=== PATIENT | female | born 1945 | race Caucasian/White ===

== ENCOUNTER 2021-10-14 09:21 | Emergency (ER) | payer MEDICARE, OTHER ==
[~2021-10-14] VITALS: Ht 162.6 cm; Wt 84.1 kg
[2021-10-14] MEDS ORDERED: BACITRACIN 0.9 GM PACKET OINTMENT TP ONE (10:30)
[2021-10-14] MEDS ORDERED: LIDOCAINE 1% 10 ML VIAL INJ ONE (10:30)
[2021-10-14] MEDS ORDERED: PERTUSS(ACELL),DIPH,TET VAC/PF 0.5 ML SYRINGE IM. ONE (10:30)
[2021-10-14] MEDS ORDERED: BUPIVACAINE HCL/PF 0.25% 30 ML VIAL SQ ONE (10:30)
[2021-10-14 11:40] VITALS: BP 136/69
== END 2021-10-14 12:14 | disposition home or self-care (01) ==
LOC: EMS 09:22
DX: S61.214A Laceration without foreign body of right ring finger without damage to nail, initial encounter (principal); S61.216A Laceration without foreign body of right little finger without damage to nail, initial encounter; Z88.1 Allergy status to other antibiotic agents; W45.8XXA Other foreign body or object entering through skin, initial encounter; Y93.89 Activity, other specified; Y92.89 Other specified places as the place of occurrence of the external cause; Y99.8 Other external cause status
CPT/HCPCS: 99283; 90715; 90471; 12002; J3490

== ENCOUNTER 2021-10-18 10:30 | Emergency (ER) | payer MEDICARE, OTHER ==
[~2021-10-18] VITALS: Ht 160 cm; Wt 90.9 kg
[2021-10-18 12:09] VITALS: BP 130/74
== END 2021-10-18 12:20 | disposition home or self-care (01) ==
LOC: EMS 10:30
DX: S61.216D Laceration without foreign body of right little finger without damage to nail, subsequent encounter (principal); S61.214D Laceration without foreign body of right ring finger without damage to nail, subsequent encounter; X58.XXXD Exposure to other specified factors, subsequent encounter; Z88.1 Allergy status to other antibiotic agents
CPT/HCPCS: 99281; Z7502

== ENCOUNTER 2021-10-26 09:28 | Emergency (ER) | payer MEDICARE, OTHER ==
[~2021-10-26] VITALS: Ht 157.5 cm; Wt 81.8 kg
[2021-10-26 12:10] VITALS: BP 136/71
== END 2021-10-26 12:13 | disposition home or self-care (01) ==
LOC: EMS 09:30
DX: S61.216D Laceration without foreign body of right little finger without damage to nail, subsequent encounter (principal); S61.214D Laceration without foreign body of right ring finger without damage to nail, subsequent encounter; M32.9 Systemic lupus erythematosus, unspecified; M35.00 Sjogren syndrome, unspecified; Z98.890 Other specified postprocedural states; Z88.1 Allergy status to other antibiotic agents; X58.XXXD Exposure to other specified factors, subsequent encounter
CPT/HCPCS: 99281; Z7502